=== PATIENT | male | born 1970 | race African-American/Black ===

== ENCOUNTER 2016-11-30 21:38 | Emergency (ER) | payer OTHER, MEDICAID ==
[~2016-11-30] VITALS: Ht 175.3 cm; Wt 65.8 kg
[2016-11-30 21:38] VITALS: BP 137/98
== END 2016-11-30 22:07 | disposition home or self-care (01) ==
LOC: ER 21:39
DX: Z00.8 Encounter for other general examination (principal)
CPT/HCPCS: A4606; Z7610